=== PATIENT | male | born 1970 | race Caucasian/White ===

== ENCOUNTER 2017-10-29 07:14 | Emergency (ER) | payer BC ==
[2017-10-29] MEDS ORDERED: Ketorolac 60 MG/2 ML SDV IM ONE (07:36)
--- NOTE | 2017-10-29 08:26 | EDM.PDOC ---
ED HPI GENERAL MEDICAL PROBLEM - General Chief Complaint: Back Pain or Injury Stated Complaint: LOWER BACK PAIN Time Seen by Provider: 10/29/17 07:35 Source of Information: Reports: Patient History Limitations: Reports: No Limitations - History of Present Illness INITIAL COMMENTS - FREE TEXT/NARRATIVE: History of present illness: []5 days ago patient tried to lift an object up at work that was frozen and pulled his back. He did not feel any pain but he woke up the next morning with low midline back pain. Later it started to spread across his low back bilaterally radiating to both sides and right lower quadrant and groin. He has had a kidney stone in the past but states he has not had any blood in his urine and this feels different. Review of systems: As per history of present illness and below otherwise all systems reviewed and negative. Past medical history: As per history of present illness and as reviewed below otherwise noncontributory. Surgical history: As per history of present illness and as reviewed below otherwise noncontributory. Social history: No reported history of drug or alcohol abuse. Family history: As per history of present illness and as reviewed below otherwise noncontributory. Physical exam: General: Well developed, well nourished in NAD HEENT: Atraumatic, normocephalic, pupils reactive, negative for conjunctival pallor or scleral icterus, mucous membranes moist, throat clear, neck supple, nontender, trachea midline. Lungs: Clear to auscultation, breath sounds equal bilaterally, chest nontender. Heart: S1S2, regular, negative for clicks, rubs, or JVD. Abdomen: NABS Soft, nondistended, nontender no rebound or guarding. Negative for masses or hepatosplenomegaly. Negative for costovertebral tenderness. Pelvis: Stable nontender. Genitourinary: Deferred. Rectal: Deferred. Extremities: Atraumatic, negative for cords or calf pain. Neurovascular unremarkable. Neuro: Awake, alert, oriented. Cranial nerves II through XII unremarkable. Cerebellum unremarkable. Motor and sensory unremarkable throughout. Exam nonfocal. Diagnostics: []Urine negative for blood Therapeutics: []Toradol IM given Impression: []Lower back muscle strain Plan: []Tramadol, Flexeril, ice heat follow-up with primary care as needed Definitive disposition and diagnosis as appropriate pending reevaluation and review of above. right lower back Pain Score (Numeric/FACES): 10 - Related Data Allergies Allergy/AdvReac Type Severity Reaction Status Date / Time No Known Allergies Allergy Verified 10/29/17 07:30 Home Meds: Home Meds Cyclobenzaprine [Flexeril] 10 mg PO BID PRN #12 tab 10/29/17 [Rx] traMADol HCl [Tramadol HCl] 50 mg PO Q6H PRN #16 tablet 10/29/17 [Rx] Past Medical History - Past Surgical History Musculoskeletal Surgical History: Reports: Shoulder Surgery, Other (See Below) Other Musculoskeletal Surgeries/Procedures:: Left Arm, Skin grafts to arm Social & Family History - Family History Family Medical History: Noncontributory - Tobacco Use Smoking Status *Q: Current Every Day Smoker Years of Tobacco use: 35 Packs/Tins Daily: 1 - Caffeine Use Caffeine Use: Reports: Coffee, Tea - Recreational Drug Use Recreational Drug Use: No ED ROS GENERAL - Review of Systems Review Of Systems: See Below (See history of present illness) ED EXAM,LOWER BACK PAIN/INJURY - Physical Exam Exam: See Below (See history of present illness) Course - Vital Signs Last Recorded V/S: Last Vital Signs Temp 98.0 F 10/29/17 07:24 Pulse 84 10/29/17 07:24 Resp 16 10/29/17 07:24 BP 134/78 10/29/17 07:24 Pulse Ox 97 10/29/17 07:24 - Orders/Labs/Meds Orders: Active Orders 24 hr Category Date Time Status UA W/MICROSCOPIC [URIN] Stat Lab 10/29/17 08:00 Ordered Labs: Laboratory Tests 10/29/17 Range/Units 08:00 Urine Color YELLOW Urine Appearance CLEAR Urine pH 5.0 (5.0-8.0) Ur Specific [place] >= 1.030 (1.001-1.035) Urine Protein NEGATIVE (NEGATIVE) mg/dL Urine Glucose (UA) NEGATIVE (NEGATIVE) mg/dL Urine Ketones NEGATIVE (NEGATIVE) mg/dL Urine Occult Blood NEGATIVE (NEGATIVE) Urine Nitrite NEGATIVE (NEGATIVE) Urine Bilirubin NEGATIVE (NEGATIVE) Urine Urobilinogen 0.2 (<2.0) EU/dL Ur Leukocyte Esterase NEGATIVE (NEGATIVE) Meds: Medications Discontinued Medications Generic Name Dose Route Start Last Admin Trade Name Freq PRN Reason Stop Dose Admin Ketorolac Tromethamine 60 mg 10/29/17 07:36 10/29/17 07:46 Toradol IM 10/29/17 07:37 60 mg ONETIME ONE Administration Departure - Departure Time of Disposition: 08:25 Disposition: Home, Self-Care 01 Condition: Good Clinical Impression: Lumbar strain - Discharge Information Prescriptions: Cyclobenzaprine [Flexeril] 10 mg PO BID PRN #12 tab PRN Reason: Pain traMADol HCl [Tramadol HCl] 50 mg PO Q6H PRN #16 tablet PRN Reason: Pain Referrals: PCP,None [Primary Care Provider] - Additional Instructions: The following information is given to patients seen in the emergency department who are being discharged to home. This information is to outline your options for follow-up care. We provide all patients seen in our emergency department with a follow-up referral. The need for follow-up, as well as the timing and circumstances, are variable depending upon the specifics of your emergency department visit. If you don't have a primary care physician on staff, we will provide you with a referral. We always advise you to contact your personal physician following an emergency department visit to inform them of the circumstance of the visit and for follow-up with them and/or the need for any referrals to a consulting specialist. The emergency department will also refer you to a specialist when appropriate. This referral assures that you have the opportunity for follow-up care with a specialist. All of these measure are taken in an effort to provide you with optimal care, which includes your follow-up. Under all circumstances we always encourage you to contact your private physician who remains a resource for coordinating your care. When calling for follow-up care, please make the office aware that this follow-up is from your recent emergency room visit. If for any reason you are refused follow-up, please contact the [facility] Emergency Department at and asked to speak to the emergency department charge nurse. Tramadol, Flexeril, Motrin, ice or heat for comfort follow-up with primary care return if symptoms worsen or change. [facility] [address] [place] [id number] - My Orders Last 24 Hours: My Active Orders 10/29/17 08:00 UA W/MICROSCOPIC [URIN] Stat - Assessment/Plan Last 24 Hours: My Active Orders 10/29/17 08:00 UA W/MICROSCOPIC [URIN] Stat
== END 2017-10-29 08:33 | disposition home or self-care (01) ==
LOC: MW.ED 07:14
DX: S39.012A Strain of muscle, fascia and tendon of lower back, initial encounter (principal); F17.210 Nicotine dependence, cigarettes, uncomplicated; X50.0XXA Overexertion from strenuous movement or load, initial encounter
CPT/HCPCS: 81001; 96372; 99283; J1885

== ENCOUNTER 2020-03-12 13:51 | Emergency (ER) | payer BC ==
--- NOTE | 2020-03-12 13:57 | EDM.PDOC ---
ED HPI GENERAL MEDICAL PROBLEM - General Stated Complaint: STROKE CODE Time Seen by Provider: 03/12/20 13:54 Source of Information: Reports: Patient, Family History Limitations: Reports: No Limitations, Altered Mental Status - History of Present Illness INITIAL COMMENTS - FREE TEXT/NARRATIVE: 50M presents after CHI w/ AMS. Patient does not recall the fall. Per patient's , he was standing on a chair trying to swat a fly when he fell hitting the R side of his head on a wall and then landing backwards on the ground. Afterwards she noted he seemed "slow" and not answering questions appropriately. He seems to be improving but is not at baseline. Patient denies headache, mm weakness, altered sensation, any complaints. - Related Data Allergies Allergy/AdvReac Type Severity Reaction Status Date / Time No Known Allergies Allergy Verified 03/12/20 14:03 Home Meds: Home Meds Cyclobenzaprine [Flexeril] 10 mg PO BID PRN #12 tab 10/29/17 [Rx] traMADol HCl [Tramadol HCl] 50 mg PO Q6H PRN #16 tablet 10/29/17 [Rx] Past Medical History - Past Surgical History Musculoskeletal Surgical History: Reports: Shoulder Surgery, Other (See Below) Other Musculoskeletal Surgeries/Procedures:: Left Arm, Skin grafts to arm Social & Family History - Family History Family Medical History: Noncontributory - Caffeine Use Caffeine Use: Reports: Coffee, Tea ED ROS GENERAL - Review of Systems Review Of Systems: Comprehensive ROS is negative, except as noted in HPI. ED EXAM, GENERAL - Physical Exam Exam: See Below Exam Limited By: No Limitations General Appearance: Alert, WD/WN Eye Exam: Bilateral Eye: EOMI, PERRL Ears: Normal External Exam Nose: Normal Inspection Throat/Mouth: Normal Inspection Head: Atraumatic, Normocephalic Neck: Normal Inspection. No: Tender Midline Respiratory/Chest: No Respiratory Distress, Lungs Clear, Normal Breath Sounds, No Accessory Muscle Use Cardiovascular: Normal Peripheral Pulses, Regular Rate, Rhythm, No Edema GI/Abdominal: Soft, Non-Tender, No Distention Extremities: Normal Inspection Neurological: Alert, Oriented, CN II-XII Intact, Normal Gait, No Motor/Sensory Deficits, Other (NIHSS = 0) Psychiatric: Normal Affect, Normal Mood Skin Exam: Warm, Dry EKG INTERPRETATION EKG Date: 03/12/20 Time: 14:48 Rhythm: NSR Rate (Beats/Min): 64 [place]: Normal P-Wave: Present QRS: Normal ST-T: Normal QT: Normal CT/PQ Interval: 140 Course - Orders/Labs/Meds Orders: Active Orders 24 hr Category Date Time Status EKG 12 Lead [EKG Documentation Completion] [RC] STAT Care 03/12/20 14:47 Active Labs: Laboratory Tests 03/12/20 03/12/20 03/12/20 Range/Units 13:53 13:53 13:53 WBC 11.42 H (4.0-11.0) K/uL RBC 5.20 (4.50-5.90) M/uL Hgb 15.3 (13.0-17.0) g/dL Hct 46.2 (38.0-50.0) % MCV 88.8 (80.0-98.0) fL MCH 29.4 (27.0-32.0) pg MCHC 33.1 (31.0-37.0) g/dL RDW Std Deviation 44.7 (28.0-62.0) fl RDW Coeff of [place] 14 (11.0-15.0) % Plt Count 409 H (150-400) K/uL MPV 9.30 (7.40-12.00) fL Neut % (Auto) 61.7 (48.0-80.0) % Lymph % (Auto) 30.1 (16.0-40.0) % [place] % (Auto) 6.0 (0.0-15.0) % Eos % (Auto) 1.8 (0.0-7.0) % Baso % (Auto) 0.4 (0.0-1.5) % Neut # (Auto) 7.0 H (1.4-5.7) K/uL Lymph # (Auto) 3.4 H (0.6-2.4) K/uL [place] # (Auto) 0.7 (0.0-0.8) K/uL Eos # (Auto) 0.2 (0.0-0.7) K/uL Baso # (Auto) 0.1 (0.0-0.1) K/uL Nucleated RBC % 0.0 /100WBC Nucleated RBCs # 0 K/uL INR 1.01 APTT 25.2 (18.6-31.3) SEC Sodium 136 (136-148) mmol/L Potassium 4.0 (3.5-5.1) mmol/L Chloride 102 (98-107) mmol/L Carbon Dioxide 26.0 (21.0-32.0) mmol/L BUN 13 (7.0-18.0) mg/dL Creatinine 1.1 (0.8-1.3) mg/dL Est Cr Clr Drug Dosing TNP Estimated GFR (MDRD) > 60.0 ml/min Glucose 89 (74-106) mg/dL Calcium 8.6 (8.5-10.1) mg/dL Magnesium 2.2 (1.8-2.4) mg/dL Total Bilirubin 0.5 (0.2-1.0) mg/dL AST 24 (15-37) IU/L ALT 38 (14-63) IU/L Alkaline Phosphatase 104 (46-116) U/L Troponin I < 0.050 (0.000-0.056) ng/mL Total Protein 8.1 (6.4-8.2) g/dL Albumin 4.2 (3.4-5.0) g/dL Globulin 3.9 (2.6-4.0) g/dL Albumin/Globulin Ratio 1.1 (0.9-1.6) TSH 3rd Generation 1.26 (0.36-3.74) uIU/mL Ethyl Alcohol < 3.0 mg/dL - Re-Assessments/Exams Free Text/Narrative Re-Assessment/Exam: 03/12/20 14:28 Patient presents s/p CHI with altered mentation. He is slow on exam, but he does answer all questions appropriately and has no focal motor deficits. Suspect concussion vs less likely CHI. Will get head CT and basic labs, f/u results and disposition accordingly. Free Text/Narrative Re-Assessment/Exam: 03/12/20 14:49 CT imaging is unremarkable; labs are also unremarkable. Patient remains neurologically intact and improving symptomatically. Patient likely experiencing concussion 2/2 CHI. Will d/c with concussion educational handout. and patient understand and agree with plan. Departure - Departure Time of Disposition: 14:50 Disposition: Home, Self-Care 01 Condition: Good Clinical Impression: Concussion injury of brain - Discharge Information Instructions: Head Injury, Adult, Concussion, Adult, [id number] Referrals: PMD, PMD [Other] Additional Instructions: The following information is given to patients seen in the emergency department who are being discharged to home. This information is to outline your options for follow-up care. We provide all patients seen in our emergency department with a follow-up referral. The need for follow-up, as well as the timing and circumstances, are variable depending upon the specifics of your emergency department visit. If you don't have a primary care physician on staff, we will provide you with a referral. We always advise you to contact your personal physician following an emergency department visit to inform them of the circumstance of the visit and for follow-up with them and/or the need for any referrals to a consulting specialist. The emergency department will also refer you to a specialist when appropriate. This referral assures that you have the opportunity for follow-up care with a specialist. All of these measure are taken in an effort to provide you with optimal care, which includes your follow-up. Under all circumstances we always encourage you to contact your private physician who remains a resource for coordinating your care. When calling for follow-up care, please make the office aware that this follow-up is from your recent emergency room visit. If for any reason you are refused follow-up, please contact the [facility] Emergency Department at and asked to speak to the emergency department charge nurse. - My Orders Last 24 Hours: My Active Orders 03/12/20 14:47 EKG 12 Lead [EKG Documentation Completion] [RC] STAT - Assessment/Plan Last 24 Hours: My Active Orders 03/12/20 14:47 EKG 12 Lead [EKG Documentation Completion] [RC] STAT
--- NOTE | 2020-03-12 14:32 | CT ---
INDICATION: Fall. Altered mental status. TECHNIQUE: Noncontrast CT images were obtained through the brain. COMPARISON: None. FINDINGS: The ventricles and sulci are within normal limits for patient age. No mass effect or midline shift. The daly-white differentiation is maintained. No acute intracranial hemorrhage or pathologic extra-axial fluid collection. The globes are symmetric in size. Circumscribed partially calcified 1.5 cm lesion within the posterior parietal scalp at midline, likely representing an epidermal inclusion cyst. The calvarium is intact. Mild paranasal sinus mucosal thickening. Small left maxillary sinus retention cyst or polyp. The mastoid air cells are clear. IMPRESSION: No acute intracranial hemorrhage or mass effect. Please note that all CT scans at this facility use dose modulation, iterative reconstruction, and/or weight-based dosing when appropriate to reduce radiation dose to as low as reasonably achievable. Dictated by Ethan Rojas MD @ Mar 12 2020 2:29PM Signed by Dr. Ethan Rojas @ Mar 12 2020 2:31PM
--- NOTE | 2020-03-12 14:36 | CT ---
INDICATION: Fall. TECHNIQUE: Noncontrast CT images were obtained through the cervical spine. COMPARISON: None. FINDINGS Mild biconvex cervical curvature. Straightening of the cervical lordosis. Vertebral heights are maintained. No acute fracture, spondylolisthesis, or traumatic subluxation. C2-3: No spinal canal or neural foraminal narrowing. C3-4: Minimal uncovertebral joint spurring. No spinal canal or neural foraminal narrowing. C4-5: No spinal canal or neural foraminal narrowing. C5-6: Shallow posterior disc osteophyte complex. No spinal canal or neural foraminal narrowing. C6-7: Moderate disc height loss. Posterior disc osteophyte complex mildly narrows the spinal canal. Bilateral uncovertebral joint spurring. Moderately severe right and mild left neural foraminal narrowing. C7-T1: No spinal canal or neural foraminal narrowing. IMPRESSION: 1. No acute fracture or traumatic subluxation. 2. Multilevel cervical spondylosis, most pronounced at C6-7. Please note that all CT scans at this facility use dose modulation, iterative reconstruction, and/or weight-based dosing when appropriate to reduce radiation dose to as low as reasonably achievable. Dictated by Ethan Rojas MD @ Mar 12 2020 2:31PM Signed by Dr. Ethan Rojas @ Mar 12 2020 2:36PM
[2020-03-12 14:41] LABS: BLOOD UREA NITROGEN,BUN 13 mg/dL (7.0-18.0); CHLORIDE,CL 102 mmol/L (98-107); GLUCOSE RANDOM 89 mg/dL (74-106); SODIUM,NA 136 mmol/L (136-148)
== END 2020-03-12 15:30 | disposition home or self-care (01) ==
LOC: MW.ED 13:51
DX: S06.0X9A Concussion with loss of consciousness of unspecified duration, initial encounter (principal); W22.01XA Walked into wall, initial encounter
CPT/HCPCS: 36415; 70450; 70450-26; 72125; 72125-26; 80053; 80307; 83735; 84443; 84484; 85025; 85610; 85730; 93005; 99284-25

== ENCOUNTER 2020-07-14 10:52 | Day surgery (SDC) | payer BC ==
[~2020-07-14 10:52] MED LIST: Lactated Ringers 1,000 ML IV SCH; Sodium Chloride 0.9% 10 ML SDV IV PRN; Sodium Chloride 0.9% 10 ML Syringe FLUSH PRN; Sodium Chloride 0.9% 2.5 ML Syringe FLUSH PRN
--- NOTE | 2020-07-14 12:03 | PCM.PREANE ---
Preanesthetic Assessment - Anesthesia/Transfusion/Family Hx Anesthesia History: Prior Anesthesia Without Reaction Family History of Anesthesia Reaction: No Transfusion History: No Prior Transfusion(s) Intubation History: Unknown - Review of Systems General: No Symptoms Pulmonary: No Symptoms Cardiovascular: No Symptoms Gastrointestinal: Other (h/o colon polyps) Neurological: No Symptoms Other: Reports: None - Physical Assessment Vital Signs: Last Vital Signs Temp 36.6 C 07/14/20 11:45 Pulse 78 07/14/20 11:45 Resp 15 07/14/20 11:45 BP 136/80 07/14/20 11:45 Pulse Ox 95 07/14/20 11:45 Height: 5 ft 9 in Weight: 102.058 kg ASA Class: 2 Mental Status: Alert & Oriented x3 Airway Class: Mallampati = 2 Dentition: Reports: Normal Dentition Thyro-Mental Finger Breadths: 3 Mouth Opening Finger Breadths: 3 ROM/Head Extension: Full Lungs: Clear to Auscultation, Normal Respiratory Effort Cardiovascular: Regular Rate, Regular Rhythm - Allergies Allergies/Adverse Reactions: Allergies Allergy/AdvReac Type Severity Reaction Status Date / Time bee venom protein (honey bee) Allergy Anaphylactic Verified 07/08/20 08:53 Shock - Blood Blood Available: No - Anesthesia Plan Pre-Op Medication Ordered: None - Acknowledgements Anesthesia Type Planned: MAC Pt an Appropriate Candidate for the Planned Anesthesia: Yes Alternatives and Risks of Anesthesia Discussed w Pt/Guardian: Yes Pt/Guardian Understands and Agrees with Anesthesia Plan: Yes PreAnesthesia Questionnaire HEENT History: Reports: Impaired Vision Other HEENT History: wears glasses Cardiovascular History: Reports: None Respiratory History: Reports: None Gastrointestinal History: Reports: Colon Polyp, GERD Genitourinary History: Reports: Renal Calculus Musculoskeletal History: Reports: Arthritis, Back Pain, Chronic, Fracture Other Musculoskeletal History: hx fx wrist, ankle, collarbone & ribs Neurological History: Reports: None Psychiatric History: Reports: None Endocrine/Metabolic History: Reports: Obesity/BMI 30+ (BMI 33.2) Hematologic History: Reports: None Immunologic History: Reports: None Oncologic (Cancer) History: Reports: None Other Dermatologic History: hx hernandez to left shoulder - Past Surgical History Head Surgeries/Procedures: Reports: None HEENT Surgical History: Reports: None Cardiovascular Surgical History: Reports: None Respiratory Surgical History: Reports: None GI Surgical History: Reports: Colonoscopy (6-7 years ago in [place]) Male Surgical History: Reports: None Endocrine Surgical History: Reports: None Neurological Surgical History: Reports: None Musculoskeletal Surgical History: Reports: Shoulder Surgery, Other (See Below) Other Musculoskeletal Surgeries/Procedures:: Left RTCR, Skin grafts to left shoulder Oncologic Surgical History: Reports: None Dermatological Surgical History: Reports: Skin Graft - SUBSTANCE USE Tobacco Use Status *Q: Current Every Day Tobacco User (1ppd) Tobacco Use Within Last Twelve Months: Cigarettes - HOME MEDS Home Medications: Home Meds Ibuprofen [Advil] 3 - 4 tab PO ASDIRECTED PRN 07/08/20 [History] Pantoprazole Sodium [Protonix] 40 mg PO DAILY 07/08/20 [History] - CURRENT (IN HOUSE) MEDS Current Meds: Current Medications Lactated Ringer's (Ringers, Lactated) 1,000 mls @ 125 mls/hr IV ASDIRECTED LEEROY Sodium Chloride (Saline Flush) 10 ml FLUSH ASDIRECTED PRN PRN Reason: Keep Vein Open Sodium Chloride (Saline Flush) 2.5 ml FLUSH ASDIRECTED PRN PRN Reason: Keep Vein Open Sodium Chloride (Saline Flush) 10 ml FLUSH ASDIRECTED PRN PRN Reason: Keep Vein Open Sodium Chloride (Saline Flush) 2.5 ml FLUSH ASDIRECTED PRN PRN Reason: Keep Vein Open Sodium Chloride (Normal Saline) 10 ml IV ASDIRECTED PRN PRN Reason: IV Use
[2020-07-14] MEDS ORDERED: fentaNYL 100 MCG/2 ML SDV ONE (12:17)
[2020-07-14] MEDS ORDERED: Propofol 200 MG/20 ML SDV ONE ×3 (12:17→13:13)
[2020-07-14] MEDS ORDERED: Midazolam 1 MG/ML 2 ML SDV ONE (12:17)
[2020-07-14] MEDS ORDERED: ePHEDrine 50 MG/ML SDV ONE (12:20)
[2020-07-14] MEDS ORDERED: Dexamethasone 4 MG/ML 5 ML MDV ONE (12:43)
[2020-07-14] MEDS ORDERED: Ondansetron 4 MG/2 ML SDV ONE (12:43)
--- NOTE | 2020-07-14 13:34 | PCM.OPNOTE ---
- General Post-Op/Procedure Note Date of Surgery/Procedure: 07/14/20 Operative Procedure(s): Diagnostic EGD and colonoscopy Findings: GERD, transverse colon polyp x 4, descending colon polyp x 1, rectal polyp x 1 Pre Op Diagnosis: History of colon polyps, gerd Post-Op Diagnosis: GERD, transverse colon polyp x 4, descending colon polyp x 1, rectal polyp x 1 Anesthesia Technique: MAC Primary Surgeon: Anaya Plummer Condition: Good
--- NOTE | 2020-07-14 14:07 | PCM.POSTAN ---
POST ANESTHESIA ASSESSMENT - MENTAL STATUS Mental Status: Alert - VITAL SIGNS Vital Signs: Last Vital Signs Temp 36.6 C 07/14/20 11:45 Pulse 69 07/14/20 13:59 Resp 16 07/14/20 13:59 BP 119/79 07/14/20 13:59 Pulse Ox 95 07/14/20 13:59 - RESPIRATORY Respiratory Status: Respiratory Rate WNL - CARDIOVASCULAR CV Status: Pulse Rate WNL - GASTROINTESTINAL GI Status: No Symptoms - PAIN Pain Score: 0 (few cramps) - POST OP HYDRATION Hydration Status: Adequate & Stable - OBSERVATIONS Free Text/Narrative:: Doing well.
--- NOTE | 2020-07-14 14:47 | PCM48HPAN ---
Post Anesthesia Note - EVALUATION WITHIN 48HRS OF ANESTHETIC Vital Signs in Normal Range: Yes Patient Participated in Evaluation: Yes Respiratory Function Stable: Yes Airway Patent: Yes Cardiovascular Function Stable: Yes Hydration Status Stable: Yes Pain Control Satisfactory: Yes Nausea and Vomiting Control Satisfactory: Yes Mental Status Recovered: Yes Vital Signs: Last Vital Signs Temp 36.1 C 07/14/20 14:05 Pulse 62 07/14/20 14:05 Resp 15 07/14/20 14:05 BP 124/81 07/14/20 14:05 Pulse Ox 96 07/14/20 14:05 - COMMENTS/OBSERVATIONS Free Text/Narrative:: Doing well. Ready for discharge.
--- NOTE | 2020-07-14 15:34 | OR ---
SURGEON: YEMI BOBBY MD DATE OF PROCEDURE: 07/14/2020 PREOPERATIVE DIAGNOSES: Gastroesophageal reflux disease, history of polyps. POSTOPERATIVE DIAGNOSES: 1. Gastroesophageal reflux disease. 2. Transverse colon polyp x4. 3. Descending colon polyp x1. 4. Rectal polyp x1. PROCEDURE PERFORMED: Diagnostic esophagogastroduodenoscopy and colonoscopy. ANESTHESIA: MAC. INSTRUMENT USED: Olympus endoscope and colonoscope. EXTENT OF EXAMINATION: To the second portion of duodenum, to the cecum. PREPARATION: Good. LIMITATIONS: None. INDICATIONS FOR EXAMINATION: The patient is a 50-year-old male who presents with worsening reflux symptoms. The patient also has a history of colon polyps and is in need of a repeat colonoscopy. I explained the pathophysiology of gastroesophageal reflux disease and the need for an esophagogastroduodenoscopy. The patient is scheduled for an outpatient esophagram as well. Given his history of polyps, he also needs a repeat colonoscopy. I explained the procedures, expected perioperative course, and the risks. He verbalized understanding and wishes to proceed. PROCEDURE IN DETAIL: The patient was brought to the endoscopy suite and placed in the left lateral decubitus position. A time-out was completed verifying the patient's name, age, date of , allergies, and procedure to be performed. A bite block was placed in the patient's mouth and continuous oxygen was provided via nasal cannula throughout the procedure. After adequate anesthesia was achieved, a well-lubricated endoscope was placed in the patient's mouth and advanced under direct visualization to the second portion of the duodenum. This appeared normal and a photograph was taken. The scope was then fully withdrawn while examining the color, texture, anatomy, and integrity of the mucosa of the upper GI tract. The duodenal mucosa all appeared normal. The scope was brought into the stomach and a photograph was taken of the pylorus and GE junction. These appeared grossly normal. The gastric mucosa was free of inflammation or ulceration. Biopsies were taken of the gastric antrum, body, and fundus and sent for histologic review and H pylori testing. The scope was then brought into the distal esophagus and a photograph was taken of the Z-line. This appeared normal. The distal esophageal mucosa appeared pink and healthy with no evidence of esophagitis. A biopsy was taken 1 cm above the Z-line and sent to pathology for histologic review. The remainder of the esophagus was normal. The scope was removed and this portion of procedure was terminated. A digital rectal exam was performed. This exam was within normal limits. A well- lubricated colonoscope was inserted into the rectum and advanced under direct visualization to the level of the cecum. The cecum was identified by both visual and anatomic landmarks. A photograph was taken of the cecal cap as well as with the scope retroflexed within the cecum. The scope was then fully withdrawn while examining the color, texture, anatomy, and integrity of mucosa from the cecum to the anal canal. The patient was found to have 4 small sessile polyps throughout the transverse colon. These were all removed in piecemeal fashion using a cold biopsy forceps. In the proximal descending colon, the patient had a pedunculated polyp. This was removed with a cold wire loop. It was sent to pathology, labeled as descending colon polyp. In the proximal rectum, the patient had a small sessile polyp that was removed using a cold biopsy forceps. Scope was then retroflexed within the rectum to allow visualization of the anal canal opening. This appeared normal and a photograph was taken. The scope was then straightened out and fully withdrawn. The cecum to anus time was 18 minutes. The patient tolerated the procedure well and was transferred to the PACU in stable condition. ENDOSCOPIC DIAGNOSIS: 1. Gastroesophageal reflux disease. 2. Transverse colon polyp x4. 3. Descending colon polyp x1. 4. Rectal polyp x1. RECOMMENDATIONS: The patient should continue his pantoprazole. He will get his esophagram, and to follow up in clinic in 2 weeks to review the results of the pathology and his esophagram. COOKIE / GUMARO /[id number]
== END 2020-07-14 14:20 | disposition home or self-care (01) ==
LOC: MW.SDS 10:52
PROVIDERS: ATTEND Surgery
DX: Z12.11 Encounter for screening for malignant neoplasm of colon (principal); D12.3 Benign neoplasm of transverse colon; D12.4 Benign neoplasm of descending colon; K62.1 Rectal polyp; K29.50 Unspecified chronic gastritis without bleeding; A04.8 Other specified bacterial intestinal infections; K21.9 Gastro-esophageal reflux disease without esophagitis; E78.5 Hyperlipidemia, unspecified; E66.9 Obesity, unspecified; G89.29 Other chronic pain; F17.210 Nicotine dependence, cigarettes, uncomplicated; Z91.030 Bee allergy status; Z98.890 Other specified postprocedural states; Z79.899 Other long term (current) drug therapy; Z68.33 Body mass index [BMI] 33.0-33.9, adult
CPT/HCPCS: 43239; 45380; J1100; J2001; J2250; J2405; J2704; J3010; J7120

== ENCOUNTER 2022-12-24 10:08 | Emergency (ER) | payer BC ==
[2022-12-24] MEDS ORDERED: Acetaminophen/Codeine 120-12 MG/5 ML Soln 5 ML UD Cup PO ONE (10:31)
== END 2022-12-24 11:43 | disposition home or self-care (01) ==
LOC: MW.ED 10:08
DX: J02.9 Acute pharyngitis, unspecified (principal); E66.9 Obesity, unspecified; Z68.33 Body mass index [BMI] 33.0-33.9, adult; Z91.030 Bee allergy status
CPT/HCPCS: 87070; 87880; 99283; A9270

== ENCOUNTER 2023-10-08 12:46 | Day surgery (SDC) | payer BC ==
[~2023-10-08 12:46] MED LIST changes: -Lactated Ringers 1,000 ML IV SCH; -Sodium Chloride 0.9% 10 ML SDV IV PRN; +Sodium Chloride 0.9% 20 ML SDV IV PRN
[2023-10-08] MEDS: Lactated Ringers 1,000 ML IV SCH (13:32)
[2023-10-08] MEDS ORDERED: propofoL 50 ML ONE (15:04)
[2023-10-08] MEDS ORDERED: Propofol 200 MG/20 ML SDV ONE (15:14)
[2023-10-08] MEDS ORDERED: fentaNYL 100 MCG/2 ML SDV ONE (15:16)
== END 2023-10-08 16:20 | disposition home or self-care (01) ==
LOC: MW.SDS 12:46
PROVIDERS: ATTEND Surgery
DX: Z12.11 Encounter for screening for malignant neoplasm of colon (principal); D12.3 Benign neoplasm of transverse colon; K57.30 Diverticulosis of large intestine without perforation or abscess without bleeding; K62.1 Rectal polyp; N20.1 Calculus of ureter; K21.9 Gastro-esophageal reflux disease without esophagitis; E78.5 Hyperlipidemia, unspecified; M25.552 Pain in left hip; M25.562 Pain in left knee; D12.6 Benign neoplasm of colon, unspecified; Z91.030 Bee allergy status; Z79.899 Other long term (current) drug therapy; Z80.0 Family history of malignant neoplasm of digestive organs
CPT/HCPCS: 45380; 82947; J2704; J3010; J7120; 00811

== ENCOUNTER 2024-08-11 06:50 | Day surgery (SDC) | payer BC ==
[~2024-08-11 06:50] MED LIST changes: +ceFAZolin 2 GM in Sodium Chloride 0.9% 50 ML IV ONE
[2024-08-11] MEDS ORDERED: Bupivacaine 0.5% 30 ML SDV ONE (07:09)
[2024-08-11] MEDS ORDERED: Lidocaine 1% 20 ML MDV ONE (07:09)
[2024-08-11] MEDS: Lactated Ringers 1,000 ML IV SCH (07:10)
[2024-08-11] MEDS ORDERED: Ondansetron 4 MG/2 ML SDV ONE (07:26)
[2024-08-11] MEDS ORDERED: Propofol 200 MG/20 ML SDV ONE (07:26)
[2024-08-11] MEDS ORDERED: fentaNYL 100 MCG/2 ML SDV ONE (07:26)
[2024-08-11] MEDS ORDERED: Dexamethasone 4 MG/ML 5 ML MDV ONE (07:26)
[2024-08-11] MEDS ORDERED: Lidocaine 1% 5 ML VIAL ONE (07:26)
[2024-08-11] MEDS ORDERED: Rocuronium Bromide 50 MG/5 ML Syringe ONE ×2 (07:51→08:14)
[2024-08-11] MEDS ORDERED: ceFAZolin 2 GM Vial ONE (08:13)
[2024-08-11] MEDS ORDERED: ePHEDrine 50 MG/ML SDV ONE (08:20)
[2024-08-11] MEDS ORDERED: Sugammadex Sodium 200 MG/2 ML VIAL IV ONE (08:23)
[2024-08-11] MEDS ORDERED: Ketorolac 30 MG/ML SDV ONE (08:34)
[2024-08-11] MEDS ORDERED: Phenylephrine HCl In 0.9% NaCl 1 MG/10 ML Syringe IVPUSH PRN (08:44)
[2024-08-11] MEDS ORDERED: Naloxone 0.4 MG/ML SDV IVPUSH PRN (08:44)
[2024-08-11] MEDS ORDERED: Albuterol 0.083% 2.5 MG/3 ML Neb Soln NEB PRN (08:44)
[2024-08-11] MEDS ORDERED: Morphine 2 MG/ML SYRINGE IVPUSH PRN (08:44)
[2024-08-11] MEDS ORDERED: Ondansetron 4 MG/2 ML SDV IVPUSH PRN (08:44)
[2024-08-11] MEDS ORDERED: fentaNYL 50 MCG/ML SDV IVPUSH PRN (08:44)
[2024-08-11] MEDS ORDERED: Metoclopramide 10 MG/2 ML SDV IVPUSH PRN (08:44)
[2024-08-11] MEDS: HYDROmorphone 1 MG/ML Syringe IVPUSH PRN (09:00)
== END 2024-08-11 09:58 | disposition home or self-care (01) ==
LOC: MW.SDS 06:50
PROVIDERS: ATTEND Surgery
DX: L72.3 Sebaceous cyst (principal); K21.9 Gastro-esophageal reflux disease without esophagitis; E78.5 Hyperlipidemia, unspecified; Z91.030 Bee allergy status; F17.210 Nicotine dependence, cigarettes, uncomplicated; F17.290 Nicotine dependence, other tobacco product, uncomplicated; Z79.899 Other long term (current) drug therapy
CPT/HCPCS: 11423; J0665; J0690; J1100; J1171; J1885; J2704; J3010; J7120; 00300; J2405; J3490